=== PATIENT | female | born 1955 | race Asian ===

== ENCOUNTER 2017-12-19 04:14 | Emergency (ER) | payer OTHER ==
--- NOTE | 2017-12-19 04:26 | PDOC ---
History of Present Illness - General History Source: Patient, Family Exam Limitations: No Limitations - History of Present Illness Initial Comments: 12/19/17 05:41 Patient is a 62 year old female with no significant past medical history who presents to the ED with right ankle pain that occured last night while at home. As per patient's son, patient was walking around house last night at 9pm when she slipped on water causing her to fall onto the floor causing immediate pain. She reports experiencing immediate right ankle pain, stating she began to cry secondary to the pain. Patient reports being able to walk but states doing so causing increased pain and cannot walk fair. She reports taking tylenol for the pain with minimal relief, prompting her to come into the ED for further evaluation. Denies chest pain, Sob. Denies nausea, vomiting. Denies head trauma, loss of consciousness. Denies change in vision. Denies fevers, chills. Denies numbness, tingles. Denies any other symptoms. Allergies: None Social history: Lives with son. No smoking. No alcohol. No illicit drugs. Surgical history: None PMD: Dr. Cevallos <Suman Stoner - Last Filed: 12/19/17 05:41> <Lexie Acharya - Last Filed: 12/20/17 05:48> - General Stated Complaint: RIGHT LEG INJURY Time Seen by Provider: 12/19/17 04:26 Past History <Suman Stoner - Last Filed: 12/19/17 05:41> <Lexie Acharya - Last Filed: 12/20/17 05:48> - Past Medical History Allergies/Adverse Reactions: Allergies Allergy/AdvReac Type Severity Reaction Status Date / Time No Known Allergies Allergy Verified 12/19/17 04:50 Home Medications: Ambulatory Orders NK [No Known Home Medication] 12/19/17 Review of Systems - Review of Systems Able to Perform ROS?: Yes Comments:: 12/19/17 05:41 GENERAL/CONSTITUTIONAL: No fever or chills. No weakness. HEAD, EYES, EARS, NOSE AND THROAT: No change in vision. No ear pain or discharge. No sore throat. CARDIOVASCULAR: No chest pain or shortness of breath. RESPIRATORY: No cough, wheezing, or hemoptysis. GASTROINTESTINAL: No nausea, vomiting, diarrhea or constipation. GENITOURINARY: No dysuria, frequency, or change in urination. MUSCULOSKELETAL: +Right ankle pain. No joint or muscle swelling.. No neck or back pain. SKIN: No rash NEUROLOGIC: No headache, vertigo, loss of consciousness, or change in strength/ sensation. ENDOCRINE: No increased thirst. No abnormal weight change. HEMATOLOGIC/LYMPHATIC: No anemia, easy bleeding, or history of blood clots. ALLERGIC/IMMUNOLOGIC: No hives or skin allergy. <Suman Stoner - Last Filed: 12/19/17 05:41> *Physical Exam - Vital Signs Last Vital Signs Temp Pulse Resp BP Pulse Ox 98.8 F 78 18 107/76 97 12/19/17 04:34 12/19/17 04:34 12/19/17 04:34 12/19/17 04:34 12/19/17 04:34 - Physical Exam Comments: 12/19/17 05:42 GENERAL: Awake, alert, and fully oriented, in no acute distress HEAD: No signs of trauma EYES: PERRLA, EOMI, sclera anicteric, conjunctiva clear ENT: Auricles normal inspection, hearing grossly normal, nares patent, oropharynx clear without exudates. Moist mucosa NECK: Normal ROM, supple, no lymphadenopathy, JVD, or masses LUNGS: Breath sounds equal, clear to auscultation bilaterally. No wheezes, and no crackles HEART: Regular rate and rhythm, normal S1 and S2, no murmurs, rubs or gallops ABDOMEN: Soft, nontender, normoactive bowel sounds. No guarding, no rebound. No masses EXTREMITIES: +Right lateral malleolus pain. +Soft tissue swelling at medial malleolus. No pain dorsal or proximal to fifth metatarsal head. No clubbing or cyanosis. No cords, erythema, NEUROLOGICAL: Cranial nerves II through XII grossly intact. Normal speech, normal gait SKIN: Warm, Dry, normal turgor, no rashes or lesions noted. <Suman Stoner - Last Filed: 12/19/17 05:41> ED Treatment Course - Medications Given in the ED: ED Medications Discontinued Medications Generic Name Dose Route Start Last Admin Trade Name Freq PRN Reason Stop Dose Admin Ibuprofen 600 mg 12/19/17 04:54 12/19/17 05:28 Motrin - PO 12/19/17 04:55 600 mg ONCE ONE Administration <Suman Stoner - Last Filed: 12/19/17 05:41> Medical Decision Making - Medical Decision Making 12/19/17 04:46 Pt slipped at home on a water spill, and she twisted her right ankle. Now with pain every time she takes a step. Pt took 2 doses of tylenol at home without relief. Soft tissue around the lateral malleolus is swollen. 12/19/17 06:23 Pt has a distal fibula fracture. 12/20/17 05:47 Home with posterior splint; crutches and outpatient ortho follow up. <Lexie Acharya - Last Filed: 12/20/17 05:48> *DC/Admit/Observation/Transfer - Attestations Scribe Attestion: 12/19/17 05:42 Documentation prepared by Suman Stoner, acting as medical collector for Lexie Acharya MD. <Suman Stoner - Last Filed: 12/19/17 05:41> - Discharge Dispostion Decision to Admit order: No <Lexie Acharya - Last Filed: 12/20/17 05:48> Diagnosis at time of Disposition: Lateral malleolar fracture - Discharge Dispostion Disposition: HOME Condition at time of disposition: Stable - Referrals Referrals: Wes Cevallos [Primary Care Provider] - Alfredito Salazar MD [Staff Physician] - - Patient Instructions Printed Discharge Instructions: DI for Ankle Fracture
[2017-12-19 04:36] VITALS: BP 107/76; PULSE 78; TEMP 98.8; BMI 20.5
[2017-12-19] MEDS ORDERED: IBUPROFEN 600 MG TABLET (FP) PO ONE ×2 (04:53→04:54)
== END 2017-12-19 07:25 | disposition home or self-care (01) ==
LOC: JER 04:14
PROC: 2W3QX1Z Immobilization of Right Lower Leg using Splint (ICD-10-PCS; principal; 2017-12-19)
DX: S82.61XA Displaced fracture of lateral malleolus of right fibula, initial encounter for closed fracture (principal); W01.0XXA Fall on same level from slipping, tripping and stumbling without subsequent striking against object, initial encounter; Y93.89 Activity, other specified; Y92.098 Other place in other non-institutional residence as the place of occurrence of the external cause
CPT/HCPCS: 29515; 73610-TC-RT-FY; 99281-25; 99282-25